=== PATIENT | male | born 1955 | race Caucasian/White ===

== ENCOUNTER 2022-02-09 21:06 | Emergency (ER) | payer MEDICAID ==
[~2022-02-09] VITALS: Ht 172.7 cm; Wt 81.6 kg
[2022-02-09 21:10] VITALS: BP_SYST 122
--- NOTE | 2022-02-09 21:30 | NUR ---
PT FROM HOME WITH C/O LAC TO LEFT INDEX FINGER AFTER CUTTING AVOCADO AT HOME. PT A&O X4, AMBULATORY, FOLLOWING COMMANDS. PT GIVEN GAUZE AND BLEEDING CONTROLLED. VSS. REQUESTED FOR MSE.
[2022-02-10] MEDS ORDERED: DIPHTH,PERTUSS(ACELL),TET VAC 0.5 ML VIAL (Tdap) I.M. ONE (00:30)
--- NOTE | 2022-02-10 01:00 | NUR ---
AT BEDSIDE FOR LAC REPAIR.
[2022-02-10] MEDS ORDERED: ACETAMINOPHEN 500 MG TABLET PO ONE (01:30)
[2022-02-10 01:38] VITALS: BP_SYST 124
--- NOTE | 2022-02-10 01:44 | NUR ---
Endorsed to discharge patient at this time.
--- NOTE | 2022-02-10 01:45 | NUR ---
Patient given written and verbal discharge instructions and verbalizes understanding. ER MD discussed with patient the results and treatment provided. Patient in stable condition. ID arm band removed.Patient educated on pain management and to follow up with PMD.Opportunity for questions provided and answered. Stressed the importance of f/u with pcp in 2 to 3 days.
== END 2022-02-10 01:38 | disposition home or self-care (01) ==
LOC: SED 21:06
DX: S61.211A Laceration without foreign body of left index finger without damage to nail, initial encounter (principal); E11.9 Type 2 diabetes mellitus without complications; Z79.899 Other long term (current) drug therapy; W26.0XXA Contact with knife, initial encounter; Y93.89 Activity, other specified; Y92.89 Other specified places as the place of occurrence of the external cause; Y99.8 Other external cause status
CPT/HCPCS: 90715; 99283